=== PATIENT | male | born 1980 | race Caucasian/White ===

== ENCOUNTER 2016-08-11 14:42 | Emergency (ER) | payer OTHER ==
--- NOTE | ~2016-08-11 | CR63 ---
[facility] A Service of [facility] [place] & [facility] RADIOLOGY TEXT RESULTS PATIENT: TREVOR GOLDBERG LOCATION: [facility] : 76 UNIT #: [id number] AGE: [address]: MELISA BENAVIDES SEX: M ORDER DR: [id number] [facility] [address] [place], [place] [address] [id number] E MR#: [id number] Acc #: [id number] NAME: TREVOR GOLDBERG. : 1980 SEX: M STUDY DATE/TIME: 08/11/2016 14:47 UNIT: [facility] ROOM: STUDY DESCRIPTION: CR Chest 2 View Attending Physician: Melisa Benavides A.P.R.N. Ordering Physician: Melisa Benavides A.P.R.N. Primary Care Physician: Generic Doctor Not In System MEDICAL IMAGING REPORT This report is preliminary unless electronic signature is present EXAM PA and lateral chest radiograph. DATE OF EXAM 08/11/2016 COMPARISON STUDIES None. HISTORY SUPPLIED Cough, congestion for 3-4 days. FINDINGS PA and lateral views are obtained. The cardiovascular configuration is normal. The lungs are clear. There is a calcified granuloma in the right base peripherally. CONCLUSION No active disease. Dictated by... Grabiel Monique M.D. THIS IS AN ELECTRONICALLY VERIFIED REPORT Grabiel Monique M.D. at 08/12/2016 5:03 PM EMMY/mercedes TD: 08/12/2016 00:14 JOB #: [id number] MEDICAL IMAGING REPORT COPY
[~2016-08-11 14:42] MED LIST: AMOXICILLIN500 M1 PO; BACTRIM DS TABL1 TAB PO; LORTAB 5/500 TA1 TA1 PO; PHENERGAN VC W120 M1 PO; PROZAC PO; SKELAXIN PO; TRAZODONE PO; VOLTAREN75 MG PO
[2016-08-11 15:06] LABS: INFLUENZA A NEG (NEG); INFLUENZA B NEG (NEG)
== END 2016-08-11 15:25 | disposition home or self-care (01) ==
LOC: CFTX 14:42
PROVIDERS: Nurse Practitioner
DX: B34.9 Viral infection, unspecified (principal)
CPT/HCPCS: 71020; 87651; 87804; 99283